=== PATIENT | female | born 1980 | race African-American/Black ===

== ENCOUNTER 2017-01-12 22:17 | Observation (INO) ==
[2017-01-13] MEDS ORDERED: KETOROLAC 30 MG/1 ML VIAL IV STA (00:28)
[2017-01-13] MEDS ORDERED: HYDROmorphone 2 MG/1 ML VIAL IV PRN (00:29)
[2017-01-13] MEDS ORDERED: ONDANSETRON 4 MG/2 ML VIAL IV PRN (00:29)
[2017-01-13] MEDS ORDERED: KETOROLAC 30 MG/1 ML VIAL ONE (01:06)
[2017-01-13 01:11] LABS: Apearance,Urine CLEAR (Clear); Bilirubin,Urine Negative (Negative); Blood, Urine Negative (Negative); Glucose,Urine (UA) Negative (Negative); Ketones,Urine Negative (Negative); Mucus,Urine Occasional /LPF (Occasional); Nitrite,Urine Negative (Negative); Protein,Urine Negative; Squamous Epithelial Cell,Urine Occasional /HPF (0-10); Urine Color Straw (Yellow); Urine Specific Gravity 1.006 (1.001-1.035); Urine Urobilinogen < 2.0 EU/DL (0.2-1.0)
[2017-01-13 01:31] LABS: Basophils # 0.1 10*3/uL (0.0-0.2); Basophils % 0.7 % (0.0-0.8); Eosinophils # 0.2 10*3/uL (0.0-0.87); Eosinophils % 1.7 % (0.00-10.9); Hematocrit 25.7 VOL% (35.7-47.0); Hemoglobin 7.3 GM/DL (12.0-16.0); Immature Granulocytes % 0.3 %; Immature Granulocytes Absolute 0.03 #; Lymphocytes # 3.3 10*3/uL (1.4-4.0); Lymphocytes % 36.8 % (21.3-54.2); Mean Corpuscular HGB Conc 28.4 GM/DL (32-36); Mean Corpuscular Hemoglobin 20 PG (27-34); Mean Corpuscular Volume 69.5 FL (87-102); Mean Platelet Volume 11.6 FL (9.6-12.0); Monocytes # 0.7 10*3/uL (0.11-0.8); Monocytes % 8.2 % (1.7-12.7); Neutrophils # 4.6 10*3/uL (1.4-7.4); Neutrophils % 52.3 % (38.7-73.9); Platelet Count 271 T/CUMM (130-400); Red Cell Distribution Width 18.5 % (9.3-17.3); White Blood Count 8.9 T/CUMM (4-12)
[2017-01-13 01:59] LABS: Alanine Aminotransferase 18 U/L (13-56); Albumin 3.4 G/DL (3.4-5.0); Alkaline Phosphatase 81 U/L (45-117); Aspartate Amino Transferase 19 U/L (0-37); Bilirubin,Total < 0.39 MG/DL (0.2-1.0); Blood Urea Nitrogen 10 MG/DL (7-18); Calcium 8.5 MG/DL (8.5-10.1); Glucose 94 MG/DL (74-106); Osmolality,Calculated 275.5 MOS/KG (273-304); Potassium 3.8 MMOL/L (3.5-5.1); Sodium 139 MMOL/L (136-145); Total Protein 7.6 G/DL (6.4-8.3)
[2017-01-13] MEDS: DEXTROSE 5% LACTATED RINGERS 1,000 ML IV SCH ×2 (02:17→19:15)
[2017-01-13 02:20] LABS: Platelet Estimate Normal
[2017-01-13 02:21] LABS: Elliptocytes Few; Giant Platelets Few; Hypochromasia 2+; Polychromasia Few
[2017-01-13] MEDS: PANTOPRAZOLE 40 MG TABLET PO SCH (08:07)
[2017-01-13] MEDS ORDERED: cefOXitin 1,000 MG in SYRINGE 1 EACH IV ONE (09:40)
[2017-01-13] MEDS ORDERED: ACETAMINOPHEN 325 MG TABLET PO PRN (13:36)
[2017-01-13] MEDS ORDERED: IRON DEXTRAN IV ONE (15:30)
[2017-01-13] MEDS ORDERED: ACETAMINOPHEN 325 MG TABLET PO ONE (15:30)
[2017-01-13] MEDS ORDERED: SODIUM CHLORIDE 0.9% IV ONE (15:30)
[2017-01-13] MEDS ORDERED: IRON DEXTRAN 25 MG in SYRINGE 1 EACH IV ONE (15:30)
[2017-01-13] MEDS ORDERED: diphenhydrAMINE CAP 50 MG CAPSULE PO ONE (15:30)
[2017-01-13 16:24] LABS: % Iron Saturation 3.6 % (18-50)
[2017-01-14] MEDS: DEXTROSE 5% LACTATED RINGERS 1,000 ML IV SCH ×3 (02:31→12:01)
[2017-01-14] MEDS ORDERED: TISSUE ADHESIVE 1 EACH APPLICATOR TOP ONE (06:44)
[2017-01-14] MEDS ORDERED: BUPIVACAINE 0.25% 50 ML VIAL ONE (06:45)
[2017-01-14] MEDS ORDERED: cefOXitin 1,000 MG in SYRINGE 1 EACH IV ONE (07:00)
[2017-01-14] MEDS: PANTOPRAZOLE 40 MG TABLET PO SCH (13:48)
[2017-01-14 14:59] VITALS: BP 141/83
[2017-01-14] MEDS ORDERED: PROPOFOL 200 MG/20 ML VIAL IV ONE (17:32)
[2017-01-14] MEDS ORDERED: SODIUM CHLORIDE 0.9% 250 ML IV ONE (17:32)
[2017-01-14] MEDS ORDERED: ONDANSETRON 4 MG/2 ML VIAL ONE (17:32)
[2017-01-14] MEDS ORDERED: fentaNYL 100 MCG/2 ML VIAL ONE (17:32)
[2017-01-14] MEDS ORDERED: SEVOFLURANE 1 UNIT/15 MINUTE INH ONE (17:32)
[2017-01-14] MEDS ORDERED: MIDAZOLAM 2 MG/2 ML VIAL ONE (17:32)
[2017-01-14] MEDS ORDERED: NEOSTIGMINE 10 MG/10 ML VIAL ONE (17:32)
[2017-01-14] MEDS ORDERED: GLYCOPYRROLATE 0.4 MG/2 ML VIAL ONE (17:32)
[2017-01-14] MEDS ORDERED: POLYETHYLENE GLYCOL POWDER 17 GM PACK PO SCH (21:00)
[2017-01-17 22:47] LABS: IgA Serum (MAYO) 218 mg/dL (61 - 356)
[2017-01-18 11:38] LABS: Tissue Transglutaminase IgA Ab < 1.2 U/mL
== END 2017-01-14 15:07 | disposition home or self-care (01) ==
LOC: EDBD → EDUNIT# → N.ED 22:17 → N.EDINP 01-13 00:31 → INTOOBSV 01-13 00:31 → N.3E 01-13 00:50
PROVIDERS: ADMIT Surgery; ATTEND Surgery
PROC: LAPCHOL (2017-01-14 07:24)